=== PATIENT | male | born 1975 | race Caucasian/White ===

== ENCOUNTER 2023-04-23 21:01 | Emergency (ER) | payer SELFPAY ==
[2023-04-23 21:50] LABS: #Basophils 0.1 10x3/uL (0.0-0.2); #Eosinphils 0.6 10x3/uL (0.0-0.5); #Monocytes 0.8 10x3/uL (0.0-1.1); #Neutrophils 6.7 10x3/uL (1.5-8.4); %Basophils 0.8 % (0.0-2.0); %Eosinophils 5.1 % (0.0-6.0); %Lymphocytes 24.1 % (18.0-47.0); %Monocytes 7.5 % (0.0-10.0); %Neutrophils 61.8 % (40.0-75.0); Hematocrit 32.1 % (38.8-50.0); Mean Corpuscular HGB CONC 34.3 g/dL (32.0-36.0); Mean Corpuscular Hemoglobin 29.3 pg (27.0-33.0); Mean Corpuscular Volume 85.4 fl (81.2-95.1); Mean Platelet Volume 11.3 fl (7.4-10.4); Platelet Count 352 10x3/uL (150-450); Red Blood Cell (RBC) Count 3.76 10x6/uL (4.32-5.72); White Blood Cell (WBC) Count 10.9 10x3/uL (3.5-10.5)
[2023-04-23 22:03] LABS: ALT (SGPT) 12 U/L (8-55); AST (SGOT) 27 U/L (5-34); Albumin 3.5 g/dL (3.5-5.0); Alkaline Phosphatase 81 U/L (40-110); Anion Gap 12 mmol/L (10-20); BUN (Urea Nitrogen) 29 mg/dL (8.9-20.6); Bilirubin, Total 0.3 mg/dL (0.2-1.2); Calc. Creatinine Clearance 0 mL/min (70-130); Calcium 8.1 mg/dL (7.8-10.44); Carbon Dioxide 25 mmol/L (22-29); Chloride 108 mmol/L (98-107); Estimated GFR 43; Globulin 2.3 g/dL (2.4-3.5); Glucose 264 mg/dL (70-105); Potassium 4.8 mmol/L (3.5-5.1); Protein, Total 5.8 g/dL (6.0-8.3); Sodium 140 mmol/L (136-145)
[2023-04-23 22:23] LABS: Troponin I 0.391 ng/mL (< 0.028)
== END 2023-04-24 00:30 | disposition home or self-care (01) ==
LOC: CSHERS 21:01
DX: R07.89 Other chest pain (principal); I50.9 Heart failure, unspecified; E87.70 Fluid overload, unspecified; I11.0 Hypertensive heart disease with heart failure; E10.9 Type 1 diabetes mellitus without complications; M19.90 Unspecified osteoarthritis, unspecified site; F12.10 Cannabis abuse, uncomplicated; Z79.899 Other long term (current) drug therapy; Z79.82 Long term (current) use of aspirin
CPT/HCPCS: 71045; 80053; 83880; 84484; 85025; 93005

== ENCOUNTER 2023-09-03 09:58 | Emergency (ER) | payer SELFPAY ==
[2023-09-03] MEDS ORDERED: Iopamidol 300 61% 100 ML VIAL FS ONE (10:19)
[2023-09-03 10:29] LABS: Actual Bicarbonate (HCO3v) 25.5 mEq/L (22-28); Analyzer IN Cardio CS ER; Base Excess -1.1 mEq/L (-2 - +2); Calcium, Ionized (venous) 1.12 mmol/L (1.16-1.32); Chloride (VBG) 104 mmol/L (98-106); Hematocrit-VBG 37 % (42.0-52.0); Hemoglobin (Hb) 12.6 g/dL (13.1-17.2); Potassium (VBG) 4.51 mmol/L (3.70-5.30); Puncture Site Other Site; RapidComm Collect By RN; Sodium 139 mmol/L (133-146)
[2023-09-03] MEDS ORDERED: Pantoprazole 40 MG VIAL ONE (10:51)
[2023-09-03] MEDS ORDERED: Morphine 4 MG/ML VIAL ONE (10:51)
[2023-09-03] MEDS ORDERED: Metoclopramide HCl 10 MG (2 mL) VIAL ONE (10:51)
[2023-09-03 11:00] LABS: Phosphorus 2.5 mg/dL (2.3-4.7)
[2023-09-03 11:02] LABS: ALT (SGPT) 8 U/L (8-55); AST (SGOT) 24 U/L (5-34); Albumin 2.6 g/dL (3.5-5.0); Alkaline Phosphatase 80 U/L (40-110); Anion Gap 11 mmol/L (10-20); BUN (Urea Nitrogen) 22 mg/dL (8.9-20.6); Bilirubin, Total 0.3 mg/dL (0.2-1.2); Calc. Creatinine Clearance 0 mL/min (70-130); Calcium 8.5 mg/dL (7.8-10.44); Carbon Dioxide 26 mmol/L (22-29); Chloride 107 mmol/L (98-107); Estimated GFR 38; Glucose 301 mg/dL (70-105); Lipase 60 U/L (8-78); Potassium 4.7 mmol/L (3.5-5.1); Protein, Total 5.6 g/dL (6.0-8.3); Sodium 139 mmol/L (136-145)
[2023-09-03 11:16] LABS: #Basophils 0.06 10x3/uL (0.0-0.2); #Eosinphils 0.35 10x3/uL (0.0-0.5); #Monocytes 0.51 10x3/uL (0.0-1.1); #Neutrophils 5.57 10x3/uL (1.5-8.4); %Basophils 0.7 % (0.0-2.0); %Eosinophils 4.3 % (0.0-6.0); %Lymphocytes 20.8 % (18.0-47.0); %Monocytes 6.2 % (0.0-10.0); %Neutrophils 67.8 % (40.0-75.0); Hematocrit 32.5 % (38.8-50.0); Hemoglobin 11.8 g/dL (13.5-17.5); Mean Corpuscular HGB CONC 36.3 g/dL (32.0-36.0); Mean Corpuscular Hemoglobin 30.3 pg (27.0-33.0); Mean Corpuscular Volume 83.3 fL (81.2-95.1); Mean Platelet Volume 11.2 fL (7.4-10.4); Platelet Count 294 10x3/uL (150-450); RBC Distribution Width 13.4 % (11.5-14.5); White Blood Cell (WBC) Count 8.2 10x3/uL (3.5-10.5)
[2023-09-03] MEDS ORDERED: Insulin Regular, Human 100 UNIT/ML 10 ML VIAL ONE (11:51)
[2023-09-03 13:00] LABS: Bilirubin Neg (Negative); Blood, Urine 50 (Negative); Clarity Clear (Clear); Glucose, Urine (Dipstick) >=1000 mg/dL (Negative); Ketone, Urine Negative (Negative); Leukocyte Negative (Negative); Nitrite Negative (Negative); Protein, Urine (Dipstick) 500 mg/dl (Neg-Trace); Urobilinogen Normal mg/dL (Less than 2)
[2023-09-03 13:14] LABS: CAUTI Indications for Culture Pelvic or flank pain; Squamous Epithelial 0-3 HPF (0-3); Transitional Epithelial 0-3 HPF (None Seen); WBC/HPF 0-3 HPF (0-3)
[2023-09-03 13:15] LABS: Bacteria/HPF 1+ HPF (None Seen); Mucous/LPF 1+ LPF (<2+)
[2023-09-03 13:20] LABS: Urine Culture Reflex No No
== END 2023-09-03 14:15 | disposition home or self-care (01) ==
LOC: CSHERS 09:58
DX: I13.0 Hypertensive heart and chronic kidney disease with heart failure and stage 1 through stage 4 chronic kidney disease, or unspecified chronic kidney disease (principal); E10.22 Type 1 diabetes mellitus with diabetic chronic kidney disease; E10.65 Type 1 diabetes mellitus with hyperglycemia; N18.9 Chronic kidney disease, unspecified; I50.9 Heart failure, unspecified; N17.9 Acute kidney failure, unspecified; R31.9 Hematuria, unspecified; F17.210 Nicotine dependence, cigarettes, uncomplicated; Z79.82 Long term (current) use of aspirin; Z79.899 Other long term (current) drug therapy; Z55.6 Problems related to health literacy
CPT/HCPCS: 36416; 71045; 74177; 80053; 81001; 82010; 82805; 83605; 83690; 83735; 83880; 84100; 84484; 85025; 93005; 96361; 96365; 96375; C9113; J1815; J2270; J2765; Q9967

== ENCOUNTER 2023-10-23 08:34 | Observation (INO) | payer SELFPAY ==
[2023-10-23] MEDS ORDERED: Pantoprazole 40 MG VIAL ONE ×2 (09:03→12:15)
[2023-10-23] MEDS ORDERED: Ondansetron PF 4 MG/2 ML Vial ONE (09:03)
[2023-10-23 09:14] LABS: Actual Bicarbonate (HCO3v) 24.5 mEq/L (22-28); Analyzer IN Cardio CS ER; Base Excess -0.7 mEq/L (-2 - +2); Calcium, Ionized (venous) 1.07 mmol/L (1.16-1.32); Chloride (VBG) 106 mmol/L (98-106); Critical Notified By: ASANCHEZ; Hematocrit-VBG 32 % (42.0-52.0); Hemoglobin (Hb) 10.9 g/dL (13.1-17.2); Potassium (VBG) 4.86 mmol/L (3.70-5.30); Puncture Site Other Site; RapidComm Collect By LAB.CB1; Sodium 137 mmol/L (133-146); pH (venous) 7.375 (7.32-7.43)
[2023-10-23 09:29] LABS: #Basophils 0.09 10x3/uL (0.0-0.2); #Eosinphils 0.44 10x3/uL (0.0-0.5); #Monocytes 0.59 10x3/uL (0.0-1.1); %Basophils 0.9 % (0.0-2.0); %Eosinophils 4.5 % (0.0-6.0); %Monocytes 6.1 % (0.0-10.0); %Neutrophils 67.2 % (40.0-75.0); Hematocrit 30.2 % (38.8-50.0); Hemoglobin 10.3 g/dL (13.5-17.5); Mean Corpuscular HGB CONC 34.1 g/dL (32.0-36.0); Mean Corpuscular Hemoglobin 29.8 pg (27.0-33.0); Mean Corpuscular Volume 87.3 fL (81.2-95.1); Mean Platelet Volume 11.2 fL (7.4-10.4); Platelet Count 219 10x3/uL (150-450); RBC Distribution Width 13.3 % (11.5-14.5); Red Blood Cell (RBC) Count 3.46 10x6/uL (4.32-5.72); White Blood Cell (WBC) Count 9.7 10x3/uL (3.5-10.5)
[2023-10-23 09:35] LABS: PTT 25.1 sec (22.0-33.0); Prothrombin Time 11.2 sec (9.5-12.1)
[2023-10-23 09:43] LABS: Troponin I 0.018 ng/mL (< 0.028)
[2023-10-23 09:48] LABS: ALT (SGPT) 12 U/L (8-55); AST (SGOT) 27 U/L (5-34); Albumin 2.5 g/dL (3.5-5.0); Alkaline Phosphatase 70 U/L (40-110); Anion Gap 13 mmol/L (10-20); BUN (Urea Nitrogen) 24 mg/dL (8.9-20.6); Bilirubin, Total 0.4 mg/dL (0.2-1.2); Calc. Creatinine Clearance 0 mL/min (70-130); Calcium 8.1 mg/dL (7.8-10.44); Carbon Dioxide 22 mmol/L (22-29); Chloride 109 mmol/L (98-107); Estimated GFR 37; Globulin 2.8 g/dL (2.4-3.5); Glucose 278 mg/dL (70-105); Lipase 71 U/L (8-78); Magnesium 1.8 mg/dL (1.6-2.6); Potassium 5.7 mmol/L (3.5-5.1); Protein, Total 5.3 g/dL (6.0-8.3); Sodium 138 mmol/L (136-145)
[2023-10-23] MEDS ORDERED: Morphine 4 MG/ML VIAL ONE ×2 (11:04→13:58)
[2023-10-23 11:32] LABS: Bilirubin Neg (Negative); Blood, Urine 50 (Negative); Clarity Clear (Clear); Glucose, Urine (Dipstick) 250 mg/dL (Negative); Ketone, Urine Negative (Negative); Leukocyte Negative (Negative); Nitrite Negative (Negative); Protein, Urine (Dipstick) 500 mg/dl (Neg-Trace); Urobilinogen Normal mg/dL (Less than 2); pH, Urine 6.5 (5.0-9.0)
[2023-10-23] MEDS ORDERED: Calcium Chloride 1 GM/10 ML Abboject SYRINGE ONE (11:47)
[2023-10-23] MEDS ORDERED: Insulin Regular, Human 100 UNIT/ML 10 ML VIAL ONE (11:47)
[2023-10-23 12:19] LABS: Acetaminophen Less than 10 mcg/mL (Less than 10); Alcohol Less than 10.0 mg/dL (Less than 10); Anion Gap 11 mmol/L (10-20); BUN (Urea Nitrogen) 22 mg/dL (8.9-20.6); Calc. Creatinine Clearance 0 mL/min (70-130); Calcium 7.9 mg/dL (7.8-10.44); Carbon Dioxide 22 mmol/L (22-29); Chloride 110 mmol/L (98-107); Estimated GFR 43; Glucose 237 mg/dL (70-105); Potassium 5.2 mmol/L (3.5-5.1); Salicylate Less than 8.0 mg/dL (Less than 8.0); Sodium 138 mmol/L (136-145)
[2023-10-23 12:36] LABS: Bacteria/HPF Rare-Few HPF (None Seen); CAUTI Indications for Culture Pelvic or flank pain; Renal Epithelial 0-3 HPF (None Seen); WBC/HPF 0-3 HPF (0-3)
[2023-10-23 12:38] LABS: Urine Culture Reflex No No
[2023-10-23] MEDS ORDERED: Ondansetron PF 4 MG/2 ML Vial IVP PRN (13:01)
[2023-10-23] MEDS ORDERED: Acetaminophen 650 MG Suppository PR PRN (13:01)
[2023-10-23] MEDS ORDERED: Acetaminophen 325 MG TAB PO PRN (13:01)
[2023-10-23 14:38] VITALS: BMI 26.2
[2023-10-23] MEDS: LOKELMA 10 GM PACKET PO SCH (14:41)
[2023-10-23 16:23] LABS: Anion Gap 11 mmol/L (10-20); BUN (Urea Nitrogen) 20 mg/dL (8.9-20.6); Calc. Creatinine Clearance 59 mL/min (70-130); Calcium 8.8 mg/dL (7.8-10.44); Carbon Dioxide 23 mmol/L (22-29); Chloride 109 mmol/L (98-107); Estimated GFR 44; Glucose 156 mg/dL (70-105); Potassium 4.5 mmol/L (3.5-5.1); Sodium 138 mmol/L (136-145)
[2023-10-23 16:25] LABS: Hematocrit 29.5 % (38.8-50.0); Hemoglobin 10.3 g/dL (13.5-17.5); Platelet Count 208 10x3/uL (150-450)
[2023-10-23] MEDS ORDERED: Metoprolol Tartrate 5 MG (5 mL) VIAL IVP SCH (16:45)
[2023-10-23] MEDS ORDERED: Glucagon 1 MG/ML KIT IM PRN (16:56)
[2023-10-23] MEDS ORDERED: Dextrose 5% in Water 1,000 ML IV PRN (16:56)
[2023-10-23] MEDS ORDERED: Dextrose 50% Abboject 50 ML SYRINGE SLOW IVP PRN (16:56)
[2023-10-23 17:20] LABS: Amphetamine Not Detected (NotDetected); Barbiturates Screen Not Detected (NotDetected); Benzodiazepine Screen Not Detected (NotDetected); Cocaine Metabolite Screen Not Detected (NotDetected); Methadone Not Detected (NotDetected); Methamphetamine Not Detected (NotDetected); Opiate Screen Not Detected (NotDetected); Oxycodone Screen Not Detected (NotDetected); Phencyclidine (PCP) Not Detected (NotDetected); THC/Cannabinoid Screen Not Detected (NotDetected); Tricyclic Screen Not Detected (NotDetected)
[2023-10-23 17:30] LABS: Creatinine, Urine 65.91 mg/dL (63-166)
[2023-10-23] MEDS: Pantoprazole 80 MG, Admixture Fee 1 EACH in Sodium Chloride 0.9% 100 ML IVPB SCH (18:37)
[2023-10-23] MEDS: Enalaprilat Dihydrate 1.25 MG/ML VIAL SLOW IVP SCH (18:54)
[2023-10-23] MEDS: Lantus 1000 UNITS/10 ML VIAL SC SCH (21:19)
[2023-10-23] MEDS: Metoprolol Tartrate 5 MG (5 mL) VIAL IVP SCH (21:21)
[2023-10-23 22:43] LABS: Hematocrit 33.8 % (38.8-50.0); Hemoglobin 11.5 g/dL (13.5-17.5); Platelet Count 240 10x3/uL (150-450)
[2023-10-24 04:22] LABS: Hematocrit 29.5 % (38.8-50.0); Hemoglobin 10.1 g/dL (13.5-17.5); Platelet Count 208 10x3/uL (150-450)
[2023-10-24 04:46] LABS: Anion Gap 13 mmol/L (10-20); BUN (Urea Nitrogen) 18 mg/dL (8.9-20.6); Calc. Creatinine Clearance 59 mL/min (70-130); Calcium 8.7 mg/dL (7.8-10.44); Carbon Dioxide 20 mmol/L (22-29); Chloride 109 mmol/L (98-107); Estimated GFR 44; Glucose 144 mg/dL (70-105); Potassium 4.5 mmol/L (3.5-5.1); Sodium 137 mmol/L (136-145)
[2023-10-24 09:49] LABS: Hemoglobin 10.4 g/dL (13.5-17.5); Platelet Count 191 10x3/uL (150-450)
[2023-10-24] MEDS ORDERED: Lidocaine 1% PF 5 ML VIAL ONE (12:18)
[2023-10-24] MEDS ORDERED: PROPOFOL 40 ML ONE (12:19)
[2023-10-24] MEDS ORDERED: fentaNYL 50 mcg/mL 1 mL Vial ONE (13:00)
[2023-10-24 15:50] LABS: Hematocrit 30.9 % (38.8-50.0); Hemoglobin 10.6 g/dL (13.5-17.5); Platelet Count 203 10x3/uL (150-450)
[2023-10-24] MEDS: Sucralfate 1 GM TAB PO SCH (17:47)
[2023-10-24] MEDS: Carvedilol 25 MG TAB PO SCH (18:31)
[2023-10-24] MEDS: Lisinopril 20 MG TAB PO SCH (18:31)
[2023-10-24] MEDS: Lantus 1000 UNITS/10 ML VIAL SC SCH (20:18)
[2023-10-24] MEDS: Pantoprazole 40 MG VIAL IVP SCH (20:20)
[2023-10-24] MEDS: Insulin Lispro 100 UNIT/ML 10 ML VIAL SC PRN (20:20)
[2023-10-24 22:49] LABS: Hematocrit 30.9 % (38.8-50.0); Hemoglobin 10.5 g/dL (13.5-17.5); Platelet Count 213 10x3/uL (150-450)
[2023-10-25] MEDS: Melatonin 3 MG TAB PO SCH (00:10)
[2023-10-25 04:22] LABS: Anion Gap 13 mmol/L (10-20); BUN (Urea Nitrogen) 23 mg/dL (8.9-20.6); Calc. Creatinine Clearance 50 mL/min (70-130); Carbon Dioxide 20 mmol/L (22-29); Chloride 106 mmol/L (98-107); Estimated GFR 36; Glucose 373 mg/dL (70-105); Potassium 4.5 mmol/L (3.5-5.1); Sodium 134 mmol/L (136-145)
[2023-10-25] MEDS: Insulin Lispro 100 UNIT/ML 10 ML VIAL SC PRN (07:40)
[2023-10-25 08:36] VITALS: BP 160/73; TEMP 98.3
[2023-10-25] MEDS: Lisinopril 20 MG TAB PO SCH (09:35)
== END 2023-10-25 10:00 | disposition home or self-care (01) ==
LOC: CSHERS 08:34 → CSHTELE 14:19
PROVIDERS: ADMIT Family Medicine; ATTEND Family Medicine
PROC: 0DB68ZZ Excision of Stomach, Via Natural or Artificial Opening Endoscopic (ICD-10-PCS; principal; 2023-10-25)
DX: K29.50 Unspecified chronic gastritis without bleeding (principal); K25.9 Gastric ulcer, unspecified as acute or chronic, without hemorrhage or perforation; D64.9 Anemia, unspecified; K22.89 Other specified disease of esophagus; I25.10 Atherosclerotic heart disease of native coronary artery without angina pectoris; F17.200 Nicotine dependence, unspecified, uncomplicated; E78.5 Hyperlipidemia, unspecified; I25.5 Ischemic cardiomyopathy; I13.0 Hypertensive heart and chronic kidney disease with heart failure and stage 1 through stage 4 chronic kidney disease, or unspecified chronic kidney disease; I50.22 Chronic systolic (congestive) heart failure; N18.32 Chronic kidney disease, stage 3b; E10.22 Type 1 diabetes mellitus with diabetic chronic kidney disease; E10.42 Type 1 diabetes mellitus with diabetic polyneuropathy; Z95.5 Presence of coronary angioplasty implant and graft; F15.10 Other stimulant abuse, uncomplicated; Z79.82 Long term (current) use of aspirin; Z79.4 Long term (current) use of insulin; Z79.899 Other long term (current) drug therapy
CPT/HCPCS: 36415; 36416; 71045; 80048; 80053; 80306; 80307; 81001; 82570; 82805; 83690; 83735; 84156; 84443; 84484; 85014; 85018; 85025; 85049; 85610; 85730; 86850; 86900; 86901; 88305; 88342; 93005; 93010; 96374; 96375; 96376; J1815; J2272; J2405; J2470; J2704; J3010

== ENCOUNTER 2023-12-13 08:51 | Emergency (ER) | payer SELFPAY ==
[2023-12-13] MEDS ORDERED: Morphine 2 MG/ML VIAL ONE (09:20)
[2023-12-13] MEDS ORDERED: Ondansetron PF 4 MG/2 ML Vial ONE (09:20)
[2023-12-13 09:47] LABS: #Basophils 0.03 10x3/uL (0.0-0.2); #Eosinophils 0.16 10x3/uL (0.0-0.5); #Monocytes 0.55 10x3/uL (0.0-1.1); #Neutrophils 8.49 10x3/uL (1.5-8.4); %Basophils 0.3 % (0.0-2.0); %Eosinophils 1.5 % (0.0-6.0); %Lymphocytes 15.7 % (18.0-47.0); %Neutrophils 77.1 % (40.0-75.0); Hematocrit 34.7 % (38.8-50.0); Hemoglobin 12.1 g/dL (13.5-17.5); Mean Corpuscular HGB CONC 34.9 g/dL (32.0-36.0); Mean Corpuscular Hemoglobin 28.8 pg (27.0-33.0); Mean Corpuscular Volume 82.6 fL (81.2-95.1); Mean Platelet Volume 10.5 fL (7.4-10.4); Platelet Count 354 10x3/uL (150-450); RBC Distribution Width 13.1 % (11.5-14.5)
[2023-12-13 09:58] LABS: ALT (SGPT) 14 U/L (8-55); AST (SGOT) 27 U/L (5-34); Alkaline Phosphatase 73 U/L (40-110); Anion Gap 15 mmol/L (10-20); BUN (Urea Nitrogen) 20 mg/dL (8.9-20.6); Bilirubin, Total 0.4 mg/dL (0.2-1.2); Calc. Creatinine Clearance 0 mL/min (70-130); Calcium 9.2 mg/dL (7.8-10.44); Carbon Dioxide 20 mmol/L (22-29); Chloride 107 mmol/L (98-107); Estimated GFR 36; Glucose 193 mg/dL (70-105); Lipase 42 U/L (8-78); Magnesium 1.8 mg/dL (1.6-2.6); Potassium 5.3 mmol/L (3.5-5.1); Sodium 137 mmol/L (136-145)
[2023-12-13 10:00] LABS: Troponin I Less than 0.010 ng/mL (< 0.028)
[2023-12-13] MEDS ORDERED: Insulin Regular, Human 100 UNIT/ML 10 ML VIAL ONE (10:42)
[2023-12-13] MEDS ORDERED: Dextrose 50% Abboject 50 ML SYRINGE ONE (10:42)
[2023-12-13] MEDS ORDERED: Albuterol 2.5 MG (3 mL) NEB ONE (11:01)
[2023-12-13 12:03] LABS: Troponin I Less than 0.010 ng/mL (< 0.028)
[2023-12-13 13:05] LABS: Potassium 4.7 mmol/L (3.5-5.1)
[2023-12-13 13:32] LABS: Bilirubin Neg (Negative); Blood, Urine 25 (Negative); Clarity Clear (Clear); Glucose, Urine (Dipstick) 250 mg/dL (Negative); Ketone, Urine 5 mg/dL (Negative); Leukocyte Negative (Negative); Nitrite Negative (Negative); Protein, Urine (Dipstick) 500 mg/dl (Neg-Trace); Urobilinogen Normal mg/dL (Less than 2)
[2023-12-13 13:44] LABS: CAUTI Indications for Culture Pelvic or flank pain; WBC/HPF None Seen HPF (0-3)
[2023-12-13 13:45] LABS: Bacteria/HPF None Seen HPF (None Seen); Squamous Epithelial 0-3 HPF (0-3)
[2023-12-13 13:46] LABS: Urine Culture Reflex No No
== END 2023-12-13 14:52 | disposition home or self-care (01) ==
LOC: CSHERS 08:51
DX: R07.89 Other chest pain (principal); R11.2 Nausea with vomiting, unspecified; R06.02 Shortness of breath; E11.9 Type 2 diabetes mellitus without complications; F17.210 Nicotine dependence, cigarettes, uncomplicated; I11.0 Hypertensive heart disease with heart failure; I50.9 Heart failure, unspecified
CPT/HCPCS: 71045; 74176; 80053; 81001; 83605; 83690; 83735; 84145; 84484; 85025; 93005; 96374; 96375; J1815; J2272; J2405; J7611; J7999

== ENCOUNTER 2024-09-19 09:19 | Emergency (ER) | payer OTHER, SELFPAY ==
[2024-09-19] MEDS ORDERED: Tetracaine 0.5% PF 4 ML BOT ONE (09:46)
[2024-09-19] MEDS ORDERED: Fluorescein Opthalmic Strip ONE (09:46)
[2024-09-19] MEDS ORDERED: Droperidol 5 MG/2 ML VIAL ONE (09:46)
== END 2024-09-19 10:43 | disposition home or self-care (01) ==
LOC: CSHERS 09:19
DX: H53.8 Other visual disturbances (principal); I13.2 Hypertensive heart and chronic kidney disease with heart failure and with stage 5 chronic kidney disease, or end stage renal disease; E11.22 Type 2 diabetes mellitus with diabetic chronic kidney disease; I50.9 Heart failure, unspecified; N18.9 Chronic kidney disease, unspecified; E11.40 Type 2 diabetes mellitus with diabetic neuropathy, unspecified; Z87.891 Personal history of nicotine dependence; W01.10XA Fall on same level from slipping, tripping and stumbling with subsequent striking against unspecified object, initial encounter
CPT/HCPCS: 70450; 96372; J1790